=== PATIENT | female | born 1970 | race Two or more races ===

== ENCOUNTER 2020-11-10 11:54 | Outpatient (CLI) | payer MEDICAID ==
--- NOTE | 2020-11-10 14:00 | Consultation ---
DATE OF CONSULTATION: 11/10/2020 CHIEF COMPLAINT: Abdominal pain, chronic GERD, referral for screening colonoscopy. HISTORY OF PRESENT ILLNESS: This is a very pleasant 50-year-old female, has chronic abdominal pain, chronic GERD on omeprazole with some improvement but not complete resolve of her issues. Also, patient needs colonoscopy given she is 50. PAST MEDICAL HISTORY: 1. GERD. 2. Constipation. 3. Dysphagia. PAST SURGICAL HISTORY: None. MEDICATIONS: Omeprazole. ALLERGIES: No known allergies. FAMILY HISTORY: Mother had hiatal hernia and hypothyroidism. SOCIAL HISTORY: The patient denies any tobacco, alcohol, IV drug abuse. REVIEW OF SYSTEMS: As dictated above. PHYSICAL EXAMINATION: VITAL SIGNS: Temperature 96.9, blood pressure 110/70, pulse is 84, respirations 20. HEENT: Normocephalic and atraumatic. Sclerae are anicteric. NECK: Supple. No evidence of obvious lymphadenopathy. CARDIOVASCULAR: Regular rate and rhythm. Plus S1, S2. LUNGS: Clear to auscultation bilaterally. ABDOMEN: Positive bowel sounds. Soft and nontender. No rebound. No guarding. No peritoneal sign. EXTREMITIES: No cyanosis, no clubbing, no edema. ASSESSMENT AND PLAN: This is a 50-year-old patient referred for chronic GERD with partial response to PPI, needs an endoscopy, also we will start the patient on omeprazole 40 and baclofen 20 at bedtime. The patient will be scheduled for EGD and colonoscopy. Javad Garcia M.D. DR: Cassidy JOB#: [id number] CC:
== END 2020-11-10 15:18 | disposition home or self-care (01) ==
LOC: PAN 11:54
DX: R10.9 Unspecified abdominal pain (principal); K21.9 Gastro-esophageal reflux disease without esophagitis; Z79.899 Other long term (current) drug therapy
CPT/HCPCS: G0463